=== PATIENT | female | born 1940 | race Caucasian/White ===

== ENCOUNTER → 2016-09-02 | Outpatient (CLI) | payer MEDICARE, OTHER ==
[~2016-09-02] MED LIST: ALPR0.25 PO; AMIO200T PO; APIX5TAB PO; CITA20TA4 PO; COZA50TA PO; LANSO15 PO; ROSU40 PO; SM A81CH CHEW; TAB-TAB PO; VITA10002 PO; ZOLP10TA3 PO
[2016-09-02 13:32] LABS: HEMATOCRIT 35.6 % (35.0-46.0); MEAN CELL VOLUME 96.7 FL (80.0-100.0); MEAN CORPUSCULAR HEMOGLOBIN 31.6 PG (27.0-34.0); MEAN CORPUSCULAR HGB CONC 32.7 % (32.0-36.0); PLATELET COUNT 340 TH/MM3 (150-450); RED BLOOD COUNT 3.69 MIL/MM3 (4.00-5.30); REVIEW FLAG FINAL; WHITE BLOOD COUNT 8.1 TH/MM3 (4.0-11.0)
[2016-09-02 13:50] LABS: ALT (GPT) 13 U/L (10-53); ANION GAP 7 MEQ/L (5-15); AST (GOT) 8 U/L (15-37); BICARBONATE 27.9 MEQ/L (21.0-32.0); BLOOD UREA NITROGEN 15 MG/DL (7-18); CHLORIDE 108 MEQ/L (98-107); GLOMERULAR FILTRATION RATE 38 ML/MIN (>89); GLUCOSE,FASTING 105 MG/DL (74-99); POTASSIUM 4.3 MEQ/L (3.5-5.1); SODIUM (NA) 143 MEQ/L (136-145)
[2016-09-02 13:59] LABS: ALKALINE PHOSPHATASE 102 U/L (45-117); HDL CHOLESTEROL 60.3 MG/DL (40.0-60.0); LDL CHOLESTEROL 61 MG/DL (0-99); LDL CHOLESTEROL DIRECT 64 MG/DL (0-99); TOTAL BILIRUBIN ADULT 0.3 MG/DL (0.2-1.0)
== END ==
LOC: PLAB 09:56
PROVIDERS: ATTEND Family Medicine
DX: I25.10 Atherosclerotic heart disease of native coronary artery without angina pectoris (principal); R53.83 Other fatigue; E78.2 Mixed hyperlipidemia; I10 Essential (primary) hypertension; I48.91 Unspecified atrial fibrillation
CPT/HCPCS: 36415; 80053; 80061; 83721; 84443; 85027

== ENCOUNTER → 2016-09-30 | Outpatient (CLI) | payer MEDICARE, OTHER ==
[2016-09-30 16:32] LABS: FREE T4 1.08 NG/DL (0.76-1.46); INDIRECT BILIRUBIN 0.4 MG/DL (0.0-0.8); TOTAL BILIRUBIN ADULT 0.5 MG/DL (0.2-1.0)
== END ==
LOC: PLAB 12:30
PROVIDERS: ATTEND Internal Medicine Cardiovascular Disease
DX: I48.91 Unspecified atrial fibrillation (principal); I25.10 Atherosclerotic heart disease of native coronary artery without angina pectoris; I10 Essential (primary) hypertension; R06.2 Wheezing
CPT/HCPCS: 36415; 80076; 84439; 84443

== ENCOUNTER 2016-11-24 11:22 | Day surgery (SDC) | payer MEDICARE, OTHER ==
[~2016-11-24 11:22] MED LIST changes: -CITA20TA4 PO
[2016-11-24] MEDS ORDERED: CHLORHEXIDINE GLUCONATE 2 % 1 PACK (2 CLOTHS) TOPICAL PRN (12:15)
[2016-11-24] MEDS ORDERED: POVIDONE IODINE 5% (ANTISEPSIS KIT) 4 APPLICATIONS EACH NARE PRN (12:15)
[2016-11-24] MEDS ORDERED: METOPROLOL TARTRATE 25 MG TAB PO PRN (12:15)
[2016-11-24] MEDS ORDERED: INSULIN HUMAN REGULAR 1,000 UNITS/10 ML VIAL SQ PRN (12:15)
[2016-11-24] MEDS ORDERED: LACTATED RINGER'S 1000 ML IV PRN (12:15)
[2016-11-24] MEDS ORDERED: SODIUM CHLORID 0.9% 500 ML IV PRN (12:15)
[2016-11-24] MEDS ORDERED: CITA20TA4 PO (12:26)
[2016-11-24] MEDS ORDERED: ePHEDrine/NS 25 MG/5 ML SYR IV ONE (12:43)
[2016-11-24] MEDS ORDERED: PROPOFOL 200 MG/20 ML AMP IV ONE (12:43)
[2016-11-24] MEDS ORDERED: ceFAZolin 2 GM PREMIX 50 ML IV SCH (13:00)
--- NOTE | 2016-11-25 06:08 | EKG ---
Date Performed: 11/24/2016 Time Performed: 14:05:40 PTAGE: 75 years EKG: Sinus arrhythmia. Poor R wave progression - probable normal variant Anteroseptal T wave martinez nges are nonspecific Borderline ECG PREVIOUS TRACING : 11/24/2016 11.49 Compared to the previous tracing a fib no longer present DOCTOR: Osbaldo Oliveira Interpretating Date/Time 11/25/2016 06:06:49
--- NOTE | 2016-11-25 06:20 | EKG ---
Date Performed: 11/24/2016 Time Performed: 11:49:06 PTAGE: 75 years EKG: Atrial fibrillation. Low QRS voltages in precordial leads Abnormal ECG PREVIOUS TRACING : 04/18/2014 13.39 Compared to the previous tracing SR no longer present DOCTOR: Osbaldo Oliveira Interpretating Date/Time 11/25/2016 06:19:03
--- NOTE | 2016-11-25 11:40 | CF ---
cc: ADRIANO LOPEZ M.D. PROCEDURE PERFORMED transesophageal echo INDICATION 1. Mitral regurgitation 2. Atrial fibrillation for cardioversion. 3. Rule out left atrial appendage thrombus CONSENT A fully informed consent was obtained prior to the procedure. The risks of , stroke, myocardial infarction, perforation, aspiration, foreseen and unforeseen complications were reviewed. The patient fully appeared to understand the risks. PROCEDURAL STATEMENT The patient was draped and prepped in the usual manner. The patient was anesthetized as per the Anesthesia Department and a full JONNY performed. FINDINGS There is evidence of moderate to severe mitral vegetation with 3-4+ eccentric mitral regurg. The left atrium was free of thrombus. LV function was normal. The right atrium was enlarged. Interatrial septum intact. There was evidence of moderate tricuspid regurgitation. The aortic valve was trileaflet and opened widely. LV function was well preserved. CONCLUSION Biatrial enlargement with moderate to severe mitral regurgitation. Plan to proceed with cardioversion. Adriano Lopez MD, FRCP,FACC KIKE/AZUL /1:46 PM /11:31 AM
--- NOTE | 2016-11-25 12:50 | MR ---
cc: ADRIANO LOPEZ M.D. DATE: 11/24/2016 PROCEDURE Cardioversion. INDICATION FOR CARDIOVERSION Atrial fibrillation. CONSENT A full informed consent was obtained prior to the procedure. The risks of , bleeding, perforation, aspiration, foreseen and unforeseen complications were reviewed. The patient fully appeared to understand the risks. PROCEDURAL STATEMENT The patient was prepped and draped in the usual manner. The patient had a performed. The left atrial appendage was free of thrombus. We therefore proceeded with cardioversion with a 200 joule synchronized shock. The patient converted from atrial fibrillation to sinus rhythm. CONCLUSIONS Successful cardioversion with a 200 joule synchronized shock converted from atrial fibrillation to sinus rhythm. Adriano Lopez MD, NIRAV,[facility]/BT /1:48 PM /12:42 PM [facility] CENTERPorfirio
== END 2016-11-24 14:31 | disposition home or self-care (01) ==
LOC: HDOC 11:22 → HDIC 11:23 → HDOC 14:31
PROVIDERS: ATTEND Internal Medicine Cardiovascular Disease
DX: I48.91 Unspecified atrial fibrillation (principal); I34.0 Nonrheumatic mitral (valve) insufficiency; I10 Essential (primary) hypertension; I25.10 Atherosclerotic heart disease of native coronary artery without angina pectoris; E78.5 Hyperlipidemia, unspecified; K21.9 Gastro-esophageal reflux disease without esophagitis; F41.1 Generalized anxiety disorder; Z95.1 Presence of aortocoronary bypass graft
CPT/HCPCS: 92960; 93005; 93312; 93320; 93325

== ENCOUNTER → 2017-01-25 | Outpatient (CLI) | payer MEDICARE, OTHER ==
[~2017-01-25] MED LIST changes: +CITA20TA4 PO
--- NOTE | 2017-02-04 12:53 | RSPPFT ---
DATE OF PROCEDURE: 01/25/17 COMMENTS: The forced vital capacity, FEV1, FEV1/FVC ratio, and FEF 25-75 are all normal. There is no significant improvement after bronchodilator. The total lung capacity and residual volume are normal with a normal RV/TLC ratio. IMPRESSION: This is a normal pulmonary function study. The diffusion capacity when corrected is also normal.
== END ==
LOC: PHRSP 10:38
PROVIDERS: ATTEND Internal Medicine Cardiovascular Disease
DX: R06.02 Shortness of breath (principal)
CPT/HCPCS: 94060; 94726; 94729

== ENCOUNTER → 2017-04-27 | Outpatient (CLI) | payer MEDICARE, OTHER ==
[2017-04-27 10:41] LABS: HEMATOCRIT 32.3 % (35.0-46.0); MEAN CORPUSCULAR HEMOGLOBIN 31.7 PG (27.0-34.0); MEAN CORPUSCULAR HGB CONC 32.6 % (32.0-36.0); PLATELET COUNT 320 TH/MM3 (150-450); RED BLOOD COUNT 3.33 MIL/MM3 (4.00-5.30); RED CELL DISTRIBUTION WIDTH 13.7 % (11.6-17.2); REVIEW FLAG FINAL; WHITE BLOOD COUNT 7.7 TH/MM3 (4.0-11.0)
[2017-04-27 10:47] LABS: ANION GAP 7 MEQ/L (5-15); AST (GOT) 18 U/L (15-37); BICARBONATE 26.8 MEQ/L (21.0-32.0); BLOOD UREA NITROGEN 23 MG/DL (7-18); CHLORIDE 109 MEQ/L (98-107); GLOMERULAR FILTRATION RATE 31 ML/MIN (>89); GLUCOSE,FASTING 88 MG/DL (74-99); POTASSIUM 4.2 MEQ/L (3.5-5.1); SODIUM (NA) 143 MEQ/L (136-145)
[2017-04-27 10:52] LABS: ALKALINE PHOSPHATASE 106 U/L (45-117); ALT (GPT) 15 U/L (10-53); HDL CHOLESTEROL 68.9 MG/DL (40.0-60.0); LDL CHOLESTEROL 52 MG/DL (0-99); LDL CHOLESTEROL DIRECT 65 MG/DL (0-99); TOTAL BILIRUBIN ADULT 0.3 MG/DL (0.2-1.0)
[2017-04-27 17:14] LABS: HEMOGLOBIN A1a 0.9 %; HEMOGLOBIN A1b 1.8 %; HEMOGLOBIN Ao 85.1 %; HEMOGLOBIN LA1C 2.1 %; HEMOGLOBIN P3 5.3 %
== END ==
LOC: PLAB 08:59
PROVIDERS: ATTEND Family Medicine
DX: D64.9 Anemia, unspecified (principal); I25.10 Atherosclerotic heart disease of native coronary artery without angina pectoris; E78.2 Mixed hyperlipidemia; I10 Essential (primary) hypertension; R73.01 Impaired fasting glucose
CPT/HCPCS: 36415; 80053; 80061; 83036; 83721; 85027

== ENCOUNTER 2017-08-03 10:18 | Day surgery (SDC) | payer MEDICARE, OTHER ==
[~2017-08-03] VITALS: Ht 154.9 cm; Wt 57.3 kg
[2017-08-03 11:00] VITALS: BP 135/82; PULSE 69; RESP 17; TEMP 98.2; O2SAT 98
[2017-08-03] MEDS ORDERED: NS 1000P @30 MLS/HR (KVO) IV SCH (11:00)
[2017-08-03] MEDS ORDERED: LOSA50TA PO (11:06)
[2017-08-03] MEDS ORDERED: ASPI81CH6 CHEW (11:06)
[2017-08-03] MEDS ORDERED: LANS30CA PO (11:06)
[2017-08-03] MEDS ORDERED: MULT400T PO (11:06)
[2017-08-03] MEDS ORDERED: FURO1TAB62 PO (11:06)
[2017-08-03] MEDS ORDERED: ALBUAER3 INH (11:06)
[2017-08-03] MEDS ORDERED: ROSU20 PO (11:06)
[2017-08-03] MEDS ORDERED: AMBI10TA PO (11:06)
[2017-08-03] MEDS ORDERED: APIX5TAB PO (11:06)
[2017-08-03] MEDS ORDERED: ALPR.25 PO (11:06)
[2017-08-03 11:26] LABS: AUTOMATED NEUTROPHIL # 7.2 TH/MM3 (1.8-7.7); BASOPHIL # 0.1 TH/MM3 (0-0.2); BASOPHIL % 0.6 % (0.0-2.0); EOSINOPHIL # 0.2 TH/MM3 (0-0.4); EOSINOPHIL % 1.8 % (0.0-4.0); HEMATOCRIT 31.7 % (35.0-46.0); HEMOGLOBIN 10.1 GM/DL (11.6-15.3); LYMPH % 20.5 % (9.0-44.0); LYMPHOCYTE # 2.1 TH/MM3 (1.0-4.8); MEAN CELL VOLUME 91.5 FL (80.0-100.0); MEAN CORPUSCULAR HEMOGLOBIN 29.2 PG (27.0-34.0); MEAN CORPUSCULAR HGB CONC 31.9 % (32.0-36.0); MEAN PLATELET VOLUME 7.5 FL (7.0-11.0); MONO % 6.5 % (0.0-8.0); MONOCYTE # 0.7 TH/MM3 (0-0.9); NEUT % 70.6 % (16.0-70.0); PLATELET COUNT 429 TH/MM3 (150-450); RED BLOOD COUNT 3.46 MIL/MM3 (4.00-5.30); WHITE BLOOD COUNT 10.2 TH/MM3 (4.0-11.0)
[2017-08-03 11:36] LABS: INTERNATIONAL NORMALIZED RATIO 1.1 RATIO; PROTHROMBIN TIME - PATIENT 10.8 SEC (9.8-11.6)
[2017-08-03 12:16] LABS: BICARBONATE 24.6 MEQ/L (21.0-32.0); CALCIUM 9.1 MG/DL (8.5-10.1); CREATININE 1.83 MG/DL (0.50-1.00)
--- NOTE | 2017-08-04 11:09 | EKG ---
Date Performed: 08/03/2017 Time Performed: 11:13:54 PTAGE: 76 years EKG: Sinus rhythm Anterolateral ST-T changes are nonspecific Borderline ECG PREVIOUS TRACING : 11/24/2016 14.05 DOCTOR: Antonio Paz Interpretating Date/Time 08/04/2017 11:09:14
== END 2017-08-03 12:00 | disposition home or self-care (01) ==
LOC: HDOC 10:18 → HDIC 10:18 → HDOC 12:00
PROVIDERS: ATTEND Internal Medicine Cardiovascular Disease
DX: I34.0 Nonrheumatic mitral (valve) insufficiency (principal); R06.02 Shortness of breath; R79.89 Other specified abnormal findings of blood chemistry; I10 Essential (primary) hypertension; F41.9 Anxiety disorder, unspecified; Z53.8 Procedure and treatment not carried out for other reasons
CPT/HCPCS: 80048; 85025; 85610; 85730; 93005; G0463; 99211

== ENCOUNTER → 2017-09-23 | Outpatient (CLI) | payer MEDICARE, OTHER ==
[~2017-09-23] MED LIST changes: +ALBUAER3 INH; +ALPR.25 PO; -ALPR0.25 PO; +AMBI10TA PO; -AMIO200T PO; +ASPI81CH6 CHEW; -CITA20TA4 PO; -COZA50TA PO; +FURO1TAB62 PO; +LANS30CA PO; -LANSO15 PO; +LOSA50TA PO; +MULT400T PO; +ROSU20 PO; -ROSU40 PO; -SM A81CH CHEW; -TAB-TAB PO; -VITA10002 PO; -ZOLP10TA3 PO
[2017-09-23 18:42] LABS: CALCIUM 9.6 MG/DL (8.5-10.1); CREATININE 1.96 MG/DL (0.50-1.00)
== END ==
LOC: PLAB 12:05
PROVIDERS: ATTEND Internal Medicine Cardiovascular Disease
DX: I48.91 Unspecified atrial fibrillation (principal)
CPT/HCPCS: 36415; 80048

== ENCOUNTER → 2017-11-03 | Outpatient (CLI) | payer MEDICARE, OTHER ==
[2017-11-03 13:22] LABS: HEMATOCRIT 32.2 % (35.0-46.0); HEMOGLOBIN 10.6 GM/DL (11.6-15.3); MEAN CELL VOLUME 90.8 FL (80.0-100.0); MEAN CORPUSCULAR HEMOGLOBIN 29.9 PG (27.0-34.0); MEAN PLATELET VOLUME 8.6 FL (7.0-11.0); PLATELET COUNT 320 TH/MM3 (150-450); RED BLOOD COUNT 3.55 MIL/MM3 (4.00-5.30); RED CELL DISTRIBUTION WIDTH 16.5 % (11.6-17.2); WHITE BLOOD COUNT 7.1 TH/MM3 (4.0-11.0)
[2017-11-03 13:25] LABS: ALBUMIN 3.7 GM/DL (3.4-5.0); AST (GOT) 15 U/L (15-37); BICARBONATE 28.2 MEQ/L (21.0-32.0); BLOOD UREA NITROGEN 30 MG/DL (7-18); CHLORIDE 108 MEQ/L (98-107); CHOLESTEROL 145 MG/DL (120-200); CREATININE 1.81 MG/DL (0.50-1.00); GLOMERULAR FILTRATION RATE 27 ML/MIN (>89); GLUCOSE,FASTING 85 MG/DL (74-99); SODIUM (NA) 142 MEQ/L (136-145)
[2017-11-03 13:37] LABS: ALKALINE PHOSPHATASE 93 U/L (45-117); ALT (GPT) 15 U/L (10-53); CHOLESTEROL/ HDL RATIO 2.67 RATIO; HDL CHOLESTEROL 54.3 MG/DL (40.0-60.0); LDL CHOLESTEROL 72 MG/DL (0-99); LDL CHOLESTEROL DIRECT 70 MG/DL (0-99); TOTAL BILIRUBIN ADULT 0.2 MG/DL (0.2-1.0); TOTAL PROTEIN 7.3 GM/DL (6.4-8.2); TRIGLYCERIDES 94 MG/DL (42-150)
== END ==
LOC: PLAB 09:37
PROVIDERS: ATTEND Family Medicine
DX: I25.10 Atherosclerotic heart disease of native coronary artery without angina pectoris (principal); I12.9 Hypertensive chronic kidney disease with stage 1 through stage 4 chronic kidney disease, or unspecified chronic kidney disease; N18.3 Chronic kidney disease, stage 3 (moderate); R53.83 Other fatigue; E78.5 Hyperlipidemia, unspecified
CPT/HCPCS: 36415; 80053; 80061; 83721; 84443; 85027

== ENCOUNTER → 2017-12-16 | Outpatient (CLI) | payer MEDICARE, OTHER ==
[2017-12-16 10:44] LABS: MAGNESIUM 2.3 MG/DL (1.5-2.5); PHOSPHORUS 3.9 MG/DL (2.5-4.9)
[2017-12-16 10:53] LABS: FREE T4 1.18 NG/DL (0.76-1.46)
== END ==
LOC: PLAB 08:56
PROVIDERS: ATTEND Family Medicine
DX: I12.9 Hypertensive chronic kidney disease with stage 1 through stage 4 chronic kidney disease, or unspecified chronic kidney disease (principal); N18.4 Chronic kidney disease, stage 4 (severe); E03.8 Other specified hypothyroidism
CPT/HCPCS: 36415; 83735; 83970; 84100; 84439; 84443